=== PATIENT | female | born 1955 | race Caucasian/White ===

== ENCOUNTER 2017-08-29 09:24 | Emergency (ER) | payer OTHER ==
[~2017-08-29] VITALS: Ht 172.7 cm; Wt 80.6 kg
[2017-08-29 09:32] VITALS: BP 143/77
[2017-08-29 10:07] LABS: CLARITY,URINE CLOUDY (Clear); COLOR,URINE YELLOW (Yellow); GLUCOSE, URINE NEGATIVE (Neg); KETONES,URINE NEGATIVE (Neg); LEUKOCYTE ESTERASE ,URINE LARGE (Neg); NITRITES, URINE NEGATIVE (Neg); OCCULT BLOOD,URINE MODERATE (Neg); PROTEIN,URINE NEGATIVE (Neg); UROBILINOGEN,URINE 0.2 E.U/dL (0.2-1.0)
[2017-08-29 10:09] LABS: UA COLLECTION TYPE CLN CATCH MIDSTREAM
[2017-08-29] MEDS ORDERED: BACDS PO (10:13)
[2017-08-29 10:20] LABS: SQUAMOUS EPITHELIAL CELL,UR NONE SEEN /LPF (FEW)
[2017-08-29 10:21] LABS: BACTERIA,URINE 1+ /HPF (Neg); WBC,URINE TNTC /HPF (0-4)
== END 2017-08-29 10:32 | disposition home or self-care (01) ==
LOC: ER 09:24
DX: N39.0 Urinary tract infection, site not specified (principal)
CPT/HCPCS: 81001; 87088; 87186; 99284